=== PATIENT | male | born 1980 | race Caucasian/White ===

== ENCOUNTER 2016-08-06 21:08 | Emergency (ER) | payer OTHER ==
[2016-08-07] MEDS ORDERED: PREDNISONE 20 MG TABLET PO ONE (00:40)
--- NOTE | 2016-08-07 00:45 | ER Document Report ---
ED General - General Chief Complaint: Allergic Reaction Stated Complaint: POSSIBLE ALLERGIC REACTION Notes: Patient is a 35-year-old male with no past medical history who presents with concerns of spreading erythema on the right forearm after being bit by a fire ant. States shortly after being bitten earlier today he began having progression of the erythema rapidly thereafter. The swelling is now encompassed most of his right hand and forearm. He also has had axillary adenopathy. He notes that he had similar symptoms with bee stings in the past but has never been stung by fire ants before. Denies any constitutional symptoms or fever. He has not seen his primary care doctor regarding today's concerns. No vomiting, weakness, numbness, difficulty breathing, difficulty swallowing, or syncope. He did take Benadryl with minimal improvement of his symptoms. Nothing worsens or symptoms. TRAVEL OUTSIDE OF THE [place] IN LAST 30 DAYS: No - Related Data Allergies/Adverse Reactions: bee venom protein (honey bee) Allergy (Verified 08/07/16 00:25) fire ant Allergy (Verified 08/07/16 00:25) Past Medical History - General Information source: Patient - Social History Smoking Status: Never Smoker Frequency of alcohol use: Occasional Drug Abuse: None Lives with: Spouse/Significant other Family History: Reviewed & Not Pertinent Patient has suicidal ideation: No Patient has homicidal ideation: No Renal/ Medical History: Denies: Hx Peritoneal Dialysis Surgical Hx: Negative Review of Systems - Review of Systems Notes: Constitutional: Negative for fever. HENT: Negative for sore throat. Eyes: Negative for visual changes. Cardiovascular: Negative for chest pain. Respiratory: Negative for shortness of breath. Gastrointestinal: Negative for abdominal pain, vomiting or diarrhea. Genitourinary: Negative for dysuria. Musculoskeletal: Negative for back pain. Skin: Positive for rash. Neurological: Negative for headaches, weakness or numbness. 10 point ROS negative except as marked above and in HPI. Physical Exam - Vital signs Vitals: Temp Pulse Resp BP Pulse Ox 98.7 F 89 20 129/88 H 98 08/06/16 21:17 08/06/16 21:17 08/06/16 21:17 08/06/16 21:17 08/06/16 21:17 Interpretation: Normal Notes: PHYSICAL EXAMINATION: GENERAL: Well-appearing, well-nourished and in no acute distress. HEAD: Atraumatic, normocephalic. EYES: Pupils equal round and reactive to light, extraocular movements intact, sclera anicteric, conjunctiva are normal. ENT: nares patent, oropharynx clear without exudates. Moist mucous membranes. NECK: Normal range of motion, supple without lymphadenopathy LUNGS: Breath sounds clear to auscultation bilaterally and equal. No wheezes rales or rhonchi. HEART: Regular rate and rhythm without murmurs ABDOMEN: Soft, nontender, normoactive bowel sounds. No guarding, no rebound. No masses appreciated. EXTREMITIES: Normal range of motion, no pitting or edema. No cyanosis. NEUROLOGICAL: No focal neurological deficits. Moves all extremities spontaneously and on command. PSYCH: Normal mood, normal affect. SKIN: Warm, Dry, normal turgor, there is erythema encompassing the distal one third of the forearm on the dorsal aspect of the right hand. Small amount of erythema is located in the axilla on the right Course - Re-evaluation Re-evalutation: 08/07/16 00:43 Patient presents with an acute area of erythema over his right forearm and hand after sustaining a fire and by approximately 6 hours ago. States the rash is immediate in progress to the area that has been demarcated within several hours. The timeline is too quick to be an acute infection and I suspect a local reaction secondary to inflammation. He was started on systemic and topical steroids. He is otherwise well in appearance, in no acute distress, vitals within normal limits. At this time will discharge with return precautions and follow-up recommendations. Verbal discharge instructions given a the bedside and opportunity for questions given. Medication warnings reviewed. Patient is in agreement with this plan and has verbalized understanding of return precautions and the need for primary care follow-up in the next 24-72 hours. - Vital Signs Vital signs: Temp Pulse Resp BP Pulse Ox 98.7 F 94 20 129/88 H 98 08/06/16 21:17 08/06/16 21:17 08/06/16 21:17 08/06/16 21:08/06/16 21:17 Discharge - Discharge Clinical Impression: Fire ant bite Qualifiers: Encounter type: initial encounter Injury intent: accidental or unintentional Qualified Code(s): T63.421A - Toxic effect of venom of ants, accidental ( unintentional), initial encounter Condition: Good Disposition: HOME, SELF-CARE Additional Instructions: Please take the steroids and apply steroid cream as directed. Return if you develop a fever greater than 101F, persistent vomiting, progression of the rash despite using the steroids, or any other symptoms that are worrisome to you. Prescriptions: Prednisone [Deltasone 20 mg Tablet] 60 mg PO DAILY #15 tablet Triamcinolone Acetonide 80 gm TP TID #80 cream.gm.
[2016-08-07 01:22] VITALS: BP 125/79
== END 2016-08-07 01:21 | disposition home or self-care (01) ==
LOC: ER 21:08
DX: T63.421A Toxic effect of venom of ants, accidental (unintentional), initial encounter (principal); W57.XXXA Bitten or stung by nonvenomous insect and other nonvenomous arthropods, initial encounter
CPT/HCPCS: 99283; J7512